=== PATIENT | female | born 1990 | race Caucasian/White ===

== ENCOUNTER → 2018-06-26 | Outpatient (CLI) | END | disposition home or self-care (01) ==

== ENCOUNTER 2019-02-16 08:35 | Inpatient (IN) | payer BC ==
[~2019-02-16] VITALS: Ht 162.6 cm; Wt 74.6 kg
[2019-02-16 08:42] VITALS: Ht 162.6 cm; Wt 74.6 kg
[2019-02-16] MEDS ORDERED: PREN-93 PO (08:50)
--- NOTE | 2019-02-16 09:38 | TRIAGE ---
OB Triage Datetime Report Generated by CPN: 02/16/2019 09:38 Datetime: 02/16/2019 09:23 Stage of : OB Triage Maternal Assessment Level of Consciousness: Fully Conscious DTR's/Clonus: DTRs 1+ Headache: Denies Breath Sounds, Left: Clear and Equal Breath Sounds, Right: Clear and Equal Nausea/Vomiting: Denies RUQ Epigastric Pain: Denies Labor Evaluation Frequency: 2-5 Monitor Mode: External Duration (sec)2399: 40-90 Quality: Mild Pattern: Normal: <= 5 Contractions in 10 Minutes Resting Tone [place]: Relaxed Heart Rate FHR Baseline Rate: 140 Monitor Mode: External US Variability: Moderate 6-25 bpm Accelerations: 15X15 Decelerations: None Category: Category I Pain Assessment Pain Scale: 0 Pain Presence: None/Denies Pain Type: N/A Pain Goal: 3 Vaginal Exam Membrane Status: Intact Datetime: 02/16/2019 09:06 Maternal Assessment Level of Consciousness: Fully Conscious DTR's/Clonus: DTRs 1+ Headache: Denies Blurred Vision: No Respiratory Effort: Unlabored Breath Sounds, Left: Clear and Equal Breath Sounds, Right: Clear and Equal Nausea/Vomiting: Denies RUQ Epigastric Pain: Denies Facial Edema: None Labor Evaluation Frequency: 2-5 Monitor Mode: External Duration (sec)2399: 40-90 Quality: Mild Pattern: Normal: <= 5 Contractions in 10 Minutes Resting Tone [place]: Relaxed Heart Rate FHR Baseline Rate: 140 Monitor Mode: External US Variability: Moderate 6-25 bpm Accelerations: 15X15 Decelerations: None Category: Category I Pain Assessment Pain Scale: 0 Pain Presence: None/Denies Pain Type: N/A Pain Goal: 3 Vaginal Exam Membrane Status: Intact Datetime: 02/16/2019 08:49 EGA: 40.1 Datetime: 02/16/2019 08:45 Assessment Type: Triage Maternal Assessment Level of Consciousness: Fully Conscious DTR's/Clonus: DTRs 2+; No Clonus Headache: Denies Blurred Vision: No Respiratory Effort: Unlabored; Regular Rhythm; Equal Expansion Breath Sounds, Left: Clear and Equal Breath Sounds, Right: Clear and Equal Nausea/Vomiting: Denies RUQ Epigastric Pain: Denies Lower Extremities Edema: None Degree: None Upper Extremities Edema: None Degree: None Facial Edema: None Fall Risk Assessment History of Falling: (0) No Secondary Diagnosis: (0) No Ambulatory Aid: (0) Bedrest/Nurse Assist IV Therapy: (0) No Gait: (0) Normal/Bedrest/Immobile Mental Status: (0) Oriented to Own Ability Fall Score: 0 Fall Risk Score Definition: No Risk: No action required Datetime: 02/16/2019 08:28 Time of Arrival: 02/16/2019 08:28 Arrived By: Ambulatory Arrived From: Office Chief Complaint: PT CAME IN [facility] FOR NST AND BPP FOR POSTDATES Movement: Present Contractions: Denies/Absent Rupture of Membranes: Denies Vaginal Discharge: Denies Recent Sexual Intercouse: Denies Abdominal Trauma: Not Applicable Additional Patient Complaints: NONE Time Provider Notified: 02/16/2019 08:49 Provider Notified: KATT Initial Plan: NST AND BPP
[2019-02-16 09:46] VITALS: BP 126/84; RESP 20
[2019-02-16] MEDS ORDERED: OXYTOCIN 30 UNITS/LR 500 ML IV SCH ×2 (10:00)
[2019-02-16] MEDS ORDERED: CARBOPROST 250 MCG INJ IM PRN (10:00)
[2019-02-16] MEDS ORDERED: BUTORPHANOL 2 MG INJ IV PRN (10:00)
[2019-02-16] MEDS ORDERED: OXYTOCIN 30 UNITS/LR 500 ML IV PRN (10:00)
[2019-02-16] MEDS ORDERED: MISOPROSTOL 200 MCG TAB PR PRN (10:00)
[2019-02-16] MEDS ORDERED: METHYLERGONOVINE 0.2 MG INJ IM PRN (10:00)
[2019-02-16] MEDS ORDERED: AMPICILLIN 2 GM/NS (PMX) 100 ML IV ONE (10:00)
[2019-02-16] MEDS: LACTATED RINGER'S 1,000 ML IV SCH ×3 (11:47→20:55)
[2019-02-16] MEDS ORDERED: MINERAL OIL LIGHT 10 ML VIAL TOP ONE (12:30)
[2019-02-16] MEDS: MISOPROSTOL 50 MCG CAPSULE PO SCH ×2 (12:53→17:13)
[2019-02-16] MEDS ORDERED: MISOPROSTOL 50 MCG CAPSULE PO SCH (13:00)
[2019-02-16] MEDS ORDERED: AMPICILLIN 1 GM/NS (PMX) 50 ML IV SCH (14:00)
--- NOTE | 2019-02-16 14:31 | HP ---
Date/Time of Note Date/Time of Note DATE: 02/16/19 TIME: 14:29 OB - History Hx of Present Free Text/Dictation 29-year-old female 1 para 0 at 40 weeks and 1 day gestation admitted for elective induction of labor Last Menstrual Period: May 11, 2018 Estimated Due Date: Feb 15, 2019 : 1 Para: 0 Care: Good Care Ultrasounds: Normal mid trimester US Obstetrical Complications: None Medical Complications: None Past Family/Social History * Past Medical, Surgical, Family and Obstetric Histories reviewed from chart. Blood Type: A+ Rubella: not immune RPR/VDRL: Negative GBS Status: Negative HBsAG: Negative OB Admission Exam Vital Signs Vital Signs Vital Signs Date Temp Pulse Resp B/P (MAP) Pulse Ox O2 O2 Flow FiO2 Time Delivery Rate 02/16/19 97.9 20 126/84 Room Air 09:46 (98) Physical Exam HEENT: WNL Heart: Rhythm Normal Lungs: Clear, Equal Abdomen: WNL Extremities: Normal Reflexes: Normal Effacement: 0% Station: -3 Heart Rate: 140's Accelerations: Accelerations Present Decelerations: No Decelerations Varibility: Marked Contractions on Admission: 6-10 Minutes Apart Last 72 hours Lab Results CBC & BMP 02/16/19 10:00 OB Assessment/Plan Reason for admission: induction of labor Other Assessment: 40 weeks and 1 day gestation Elective induction of labor Other plan: Induce labor using Cytotec DONATO HIGGINBOTHAM MD Feb 16, 2019 14:31
[2019-02-17] MEDS: LACTATED RINGER'S 1,000 ML IV SCH ×4 (04:41→20:55)
[2019-02-17] MEDS ORDERED: OXYTOCIN 30 UNITS/LR 500 ML IV SCH (05:00)
[2019-02-17] MEDS ORDERED: ACETAMINOPHEN 325 MG TAB PO PRN (10:45)
--- NOTE | 2019-02-17 18:16 | PN ---
Date/Time of Note Date/Time of Note DATE: 02/17/19 TIME: 18:14 OB Subjective Subjective Subjective Currently does not have complaint of uterine contractions OB Objective Objective Objective Vital signs are stable as well as general physical exam Cervix is 50% in 2-3 cm open Membranes were ruptured Amniotic fluid appeared to be clear OB Assessment/Plan Reason for admission: induction of labor Other Assessment: Term gestation Other plan: Continue with Pitocin augmentation of labor DONATO HIGGINBOTHAM MD Feb 17, 2019 18:16
[2019-02-17] MEDS ORDERED: ROPIVACAINE 0.2% 100 ML ONE (18:43)
--- NOTE | 2019-02-17 19:06 | PREAC ---
Date/Time of Note Date/Time of Note DATE: 02/17/19 TIME: 19:05 Anesthesia Eval and Record Evaluation Time Pre-Procedure Interview DATE: 02/17/19 TIME: 19:05 Age 29 Sex female NPO: 8 hrs Preoperative diagnosis Labor Pain Planned procedure Labor Epidural Past Medical History Past Medical History: Includes Heme: Anemia : : (1), Para: (0), Gestational age: (40) Surgery & Anesthesia Issues No known issue Meds Anticoagulation: No Beta Amandeep within 24 hr: No Reason Beta Amandeep not given: Pt. not on B-Amandeep Reported Medications Vit No.124/Iron/FA ( Vitamin Tablet) 1 Each Tablet, 1 EACH PO, TAB 02/16/19 Current Medications Lactated Ringer's 1,000 ml @ 125 mls/hr Q8H IV Last administered on 02/17/19at 16:22; Admin Dose 125 MLS/HR; Start 02/16/19 at 09:40 Butorphanol Tartrate (Stadol) 2 mg Q2H PRN IV .PAIN; Start 02/16/19 at 10:00 Lidocaine (Xylocaine 1% (Mpf)) 30 ml ONCE PRN INJ .EPISIOTOMY; Start 02/16/19 at 10:00 Oxytocin/Lactated Ringer's 500 ml @ 500 mls/hr ONCE POST IV ; Start 02/16/19 at 10:00 Oxytocin/Lactated Ringer's 500 ml @ 125 mls/hr POST IV ; Start 02/16/19 at 10:00 Oxytocin/Lactated Ringer's 500 ml @ 0 mls/hr ONCE PRN IV .VAGINAL BLEEDING; Start 02/16/19 at 10:00 Methylergonovine Maleate (Methergine) 0.2 mg ONCE PRN IM .VAGINAL BLEEDING; Start 02/16/19 at 10:00 Carboprost Tromethamine (Hemabate) 250 mcg ONCE PRN IM .VAGINAL BLEEDING; Start 02/16/19 at 10:00 Misoprostol (Cytotec) 1,000 mcg ONCE PRN AK .VAGINAL BLEEDING; Start 02/16/19 at 10:00 Oxytocin/Lactated Ringer's 500 ml @ 0 mls/hr Q0M IV Last administered on 02/17/19at 06:53; Admin Dose 1 MLS/HR; Start 02/17/19 at 05:00 Acetaminophen (Tylenol Tab) 650 mg Q4H PRN PO MILD PAIN(1-3)OR ELEVATED TEMP Last administered on 02/17/19at 10:54; Admin Dose 650 MG; Start 02/17/19 at 10:45 Meds reviewed: Yes Allergies Coded Allergies: No Known Allergy (Unverified , 02/16/19) Allergies Reviewed: Yes Labs/Studies Labs Reviewed: Reviewed by anesthesiologist Result Diagram: 02/16/19 1000 test: Positive Studies: ECG (n/a), CXR (n/a) Pre-procedure Exam Last vitals Vital Signs Date Temp Pulse Resp B/P (MAP) Pulse Ox O2 O2 Flow FiO2 Time Delivery Rate 02/16/19 97.9 20 126/84 Room Air 09:46 (98) Airway: Adequate mouth opening, Adequate thyromental dist Mallampati: Mallampati II Teeth: Normal Lung: Normal Heart: Normal ASA Physical Status ASA physical status: 2 Emergency: None Planned Anesthetic Neuraxial: Epidural Planned Pain Management Epidural Pre-operative Attestations Prior to commencing anesthesia and surgery, the patient was re-evaluated, there was verification of: *The patient's identity *The results of appropriate recent lab work and preoperative vital signs *The above evaluation not changing prior to induction *Anesthetic plan, risk benefits, alternative and complications discussed with patient/family; questions answered; patient/family understands, accepts and wishes to proceed. RONNY TORO MD Feb 17, 2019 19:06
--- NOTE | 2019-02-17 19:08 | PAC ---
Date/Time of Note Date/Time of Note DATE: 02/17/19 TIME: 19:08 Post-Anesthesia Notes Post-Anesthesia Note Last documented vital signs Vital Signs Date Temp Pulse Resp B/P (MAP) Pulse Ox O2 O2 Flow FiO2 Time Delivery Rate 02/16/19 97.9 84 20 126/84 99 Room Air 18:46 (98) Activity: WNL Respiratory function: WNL Cardiovascular function: WNL Mental status: Baseline Pain reasonably controlled: Yes Hydration appropriate: Yes Nausea/Vomiting absent: Yes RONNY TORO MD Feb 17, 2019 19:08
[2019-02-17] MEDS ORDERED: ROPIVACAINE 0.2% 100ML BAG EPI SCH (19:30)
[2019-02-17] MEDS ORDERED: NALOXONE (0.4 MG/ML) INJ IV PRN (19:30)
[2019-02-18] MEDS: MINERAL OIL LIGHT 10 ML VIAL TOP PRN ×2 (02:00→02:05)
[2019-02-18] MEDS: LIDOCAINE 1% (MPF) 30 ML INJ INJ PRN ×2 (02:32→02:49)
[2019-02-18] MEDS ORDERED: FENTAnyl 50 MCG/ML VIAL IV ONE (03:00)
--- NOTE | 2019-02-18 04:18 | LDN ---
Date/Time of Note Date/Time of Note DATE: 02/18/19 TIME: 04:15 Delivery Summary 29 years old 1 with single intrauterine delivered a viable male over median episiotomy with third-degree laceration. Nose and mouth suction there was a tight nuchal cord x1 which clamped and cut. Rest of body delivered. Baby given to the nurse. Placenta delivered intact spontaneously with three-vessel cord. Laceration and episiotomy repaired with 0 and 2-0 Vicryl. Patient tolerated procedure well Time of delivery 02:10 Weight 7 pounds 11 ounces - 3485 g 8 at 1 minutes and 9 at 5 minutes EBL 300 mL Weeks of Gestation 40 weeks and 3 days Placenta Delivered: Spontaneously Meconium: none Episiotomy: Yes (Median) Anesthesia type: Local Estimated blood loss: 300 Sponge & Needle done & correct: Yes All needle counts correct: Yes Any foreign bodies felt in the: No Infant Delivery Information Sex Sex: male Apgars 1 Minute: 8 5 Minute: 9 10 Minute: 10 Suctioning Nose & mouth suctioned at yessica: Yes Umbilical Cord Umbilical cord with: 3 Vessels Cord presentations: nuchal cord Nuchal cord present X: 1 Cord Blood was obtained: Yes Mother & Baby Disposition Disposition Mom & Baby to Maternity; Good: Yes JAYDEN DESHPANDE Feb 18, 2019 04:18
[2019-02-18 04:45] VITALS: BP 105/66; PULSE 64; RESP 19
[2019-02-18] MEDS ORDERED: DEXTROSE 5%-LR 1,000 ML IV SCH (04:59)
[2019-02-18] MEDS: LACTATED RINGER'S 1,000 ML IV* SCH ×2 (04:59→06:37)
[2019-02-18] MEDS ORDERED: CARBOPROST 250 MCG INJ IM PRN (05:00)
[2019-02-18] MEDS ORDERED: OXYCODONE/ASPIRIN (4.88/325) TAB PO PRN (05:00)
[2019-02-18] MEDS ORDERED: ZOLPIDEM 5 MG TAB PO PRN (05:00)
[2019-02-18] MEDS ORDERED: ONDANSETRON 4 MG INJ IV PRN (05:00)
[2019-02-18] MEDS ORDERED: WITCH HAZEL/GLYCERIN PAD PR PRN (05:00)
[2019-02-18] MEDS ORDERED: BENZOCAINE 20% 56 ML SPRAY TOP PRN (05:00)
[2019-02-18] MEDS ORDERED: DIPHENHYDRAMINE 50 MG INJ IV PRN (05:00)
[2019-02-18] MEDS ORDERED: MISOPROSTOL 200 MCG TAB PR PRN (05:00)
[2019-02-18] MEDS ORDERED: LANOLIN HPA 1 PKT TOP PRN (05:00)
[2019-02-18] MEDS ORDERED: OXYTOCIN 30 UNITS/LR 500 ML IV PRN (05:00)
[2019-02-18] MEDS ORDERED: DIBUCAINE 1% 30 GM OINT TOP PRN (05:00)
[2019-02-18] MEDS ORDERED: CEFAZOLIN 2 GM/50 ML (PMX) 50 ML IVPB ONE (05:00)
[2019-02-18] MEDS ORDERED: METHYLERGONOVINE 0.2 MG INJ IM PRN (05:00)
[2019-02-18] MEDS ORDERED: ACETAMINOPHEN 325 MG TAB PO PRN (05:00)
[2019-02-18 05:31] VITALS: BP 110/71; PULSE 65; RESP 17
[2019-02-18] MEDS: IBUPROFEN 600 MG TAB PO SCH ×3 (05:44→18:06)
[2019-02-18 08:00] VITALS: BP 113/77; PULSE 67; RESP 20
[2019-02-18 15:55] VITALS: BP 106/68; PULSE 64; RESP 18
[2019-02-18] MEDS: CEPHALEXIN 500 MG CAP PO SCH ×2 (16:30→18:06)
[2019-02-18 20:00] VITALS: BP 109/80; PULSE 64; RESP 18
[2019-02-18] MEDS: MAGNESIUM HYDROXIDE 30ML CUP PO PRN (21:34)
[2019-02-18] MEDS: SENNA/DOCUSATE NA (8.6MG/50MG) TAB PO PRN (21:34)
[2019-02-19] MEDS: CEPHALEXIN 500 MG CAP PO SCH ×5 (00:18→23:45)
[2019-02-19] MEDS: IBUPROFEN 600 MG TAB PO SCH ×5 (00:18→23:45)
[2019-02-19 00:36] VITALS: BP 112/68; PULSE 78; RESP 18
[2019-02-19 04:16] VITALS: BP 109/64; PULSE 68; RESP 20
[2019-02-19 08:51] VITALS: BP 111/72; PULSE 70; RESP 18
[2019-02-19] MEDS: MAGNESIUM HYDROXIDE 30ML CUP PO PRN (09:00)
[2019-02-19] MEDS: SENNA/DOCUSATE NA (8.6MG/50MG) TAB PO PRN (09:00)
[2019-02-19 16:04] VITALS: BP 121/80; PULSE 81; RESP 18
--- NOTE | 2019-02-19 17:37 | DS ---
Date/Time of Note Date/Time of Note DATE: 02/19/19 TIME: 17:36 Obstetrical Discharge Record Final Diagnosis Final Diagnosis: Term delivered Other Final Diagnosis Status post vaginal delivery Vaginal Delivery Obstetrical Delivery: Spontaneous, Episiotomy, Repaired Complications Augmentation: Yes Induction: Yes Condition on Discharge Physical Assessment Last Vitals: See nurse's notes Voiding: Yes Bowel Movement: Yes Breast: Soft, non-tender, Filling Fundus: Firm Abdomen and Incision: Abdomen is soft with present bowel sounds Episiotomy: Episiotomy is healing well and appears clean Calf Tenderness: No Patient Condition: Good DONATO HIGGINBOTHAM MD Feb 19, 2019 17:37
[2019-02-19] MEDS ORDERED: IBUP-1542 PO (17:38)
--- NOTE | 2019-02-19 17:38 | PD.PPDC ---
[employer] PROFESSOR Discharge Instruction Provider Information Physician Information 29-year-old female had vaginal Diagnosis [id number] Final Diagnosis: Vjiht4m Status post vaginal Condition [id number] Patient Condition: [id number] Good Diet [id number] Diet: Jtnly8n Resume Regular Diet Activity/Restrictions [id number] Activity: Ynmgu2m Normal Activity May Shower [id number] Restrictions: Nowiz1w Nothing in the Vagina [id number] Return to Work or School: Uyszc0l Apr 06, 2019 Follow-up Follow-up with Physician: 2, 4, Week/Weeks (In clinic) Return to clinic for [id number] OB Instructions: Rqioq7w Breast Tenderness Depression Comment: Pelvic rest for 6 weeks DONATO HIGGINBOTHAM MD Feb 19, 2019 17:38
[2019-02-19 19:35] VITALS: BP 108/72; PULSE 72; RESP 18
[2019-02-20 04:06] VITALS: BP 117/77; PULSE 70; RESP 18
[2019-02-20] MEDS: IBUPROFEN 600 MG TAB PO SCH ×3 (05:28→18:12)
[2019-02-20] MEDS: CEPHALEXIN 500 MG CAP PO SCH ×3 (05:28→18:12)
[2019-02-20 08:30] VITALS: BP 115/71; PULSE 57; RESP 18
[2019-02-20] MEDS ORDERED: MEASLES,MUMPS,RUBELLA VACCINE INJ SC* ONE (09:00)
[2019-02-20] MEDS ORDERED: DIPHTH/TET/ACEL PERTUSS (ADULT) 0.5 ML VIAL IM* ONE (09:00)
[2019-02-20 15:30] VITALS: BP 118/75; PULSE 70; RESP 16
--- NOTE | 2019-02-21 18:17 | DELSUM ---
Delivery Summary A-C Datetime Report Generated by CPN: 02/21/2019 18:17 DELIVERY PERSONNEL Rail Car Welder: Felisa Vega MATERNAL INFORMATION Delivery Anesthesia: Epidural Medications in Delivery: see EMAR Delivery QBL (ml): 300 Placenta Cultured: No Maternal Complications: None LABOR SUMMARY EDC: 02/15/2019 00:00 No. Babies in Womb: 1 Attempted: No Labor Anesthesia: Epidural LABOR INFORMATION Reason for Induction: Postterm Onset of Labor: 02/17/2019 16:00 Complete Dilatation: 02/18/2019 00:54 Cervical Ripening Agents: Cytotec @ Oxytocin: Augmentation Group B Beta Strep: Negative Antibiotics # of Doses: 1 Antibiotics Time of Last Dose: 02/16/2019 12:00 Steroids Given: None Reason Steroids Not Administered: Not Applicable MEMBRANES Membranes Rupture Method: Spontaneous Rupture of Membranes: 02/17/2019 16:30 Length of Rupture (hr): 9.67 Amniotic Fluid Color: Clear Amniotic Fluid Amount: Large Amniotic Fluid Odor: Normal STAGES OF LABOR Stage 1 hr: 8 Stage 1 min: 54 Stage 2 hr: 1 Stage 2 min: 16 Stage 3 hr: 0 Stage 3 min: 4 Total Time in Labor hr: 10 Total Time in Labor min: 14 VAGINAL DELIVERY Episiotomy: Median Laceration Extension: Third Degree Laceration Type: Perineal Laceration Repair: Yes Initial Vag Sponge Count: 10+10 Final Vag Sponge Count: 20 Initial Vag Sharps Count: 1+2+1 Final Vag Sharps Count: 4 Sponge Count Correct: Yes Sharps Count Correct: Yes BABY A INFORMATION Infant Delivery Date/Time: 02/18/2019 02:10 Method of Delivery: Vaginal Born in Route : No : N/A Forceps: N/A Vacuum Extraction: N/A Shoulder Dystocia : No SHOULDER DYSTOCIA BABY A Delivery Date/Time: 02/18/2019 02:10 PRESENTATION/POSITION BABY A Presentation: Cephalic Cephalic Presentation: Vertex Breech Presentation: N/A PLACENTA INFORMATION BABY A Placenta Delivery Time : 02/18/2019 02:14 Placenta Method of Delivery: Spontaneous Placenta Status: Delivered SCORES BABY A Heart Rate 1 min: >100 bpm Resp Effort 1 min: Good Cry Reflex Irritability 1 min: Cough/Sneeze/Pulls Away Muscle Tone 1 min: Active Motion Color 1 min: Blue/Pale Resuscitation Effort 1 min: Tactile Stimulation SCORE 1 MIN: 8 Heart Rate 5 min: >100 bpm Resp Effort 5 min: Good Cry Reflex Irritability 5 min: Cough/Sneeze/Pulls Away Muscle Tone 5 min: Active Motion Color 5 min: Body Gene [place], Extremit Blue Resuscitation Effort 5 min: N/A SCORE 5 MIN: 9 INFORMATION BABY A Gestational Age at Delivery: 40.3 Gestational Status: Full Term- 39- 40.6 Weeks Outcome : Liveborn Condition : Stable Infant Sex: Male IDENTIFICATION/MEDS BABY A ID Band Number: [id number] ID Band Location: Right Leg; Left Arm Sensor Applied: Yes Sensor Number: [id number] Sensor Location : Cord Clamp Vitamin K Given : Not Given Erythromycin Given: Not Given WEIGHT/LENGTH BABY A Birthweight (gm): 3485 Infant Weight (lb): 7 Infant Weight (oz): 11 Length (in): 20.50 Infant Length (cm): 52.07 CORD INFORMATION BABY A No. Cord Vessels: 3 Nuchal Cord : Around Neck x1, Tight Cord Blood Taken: Yes Banking/Donate Info: n/a Suction: Mouth; Nose ASSESSMENT BABY A Infant Complications: Multiple Variable Decels Physical Findings at Delivery: Caput Succedaneum Respirations: Appears Normal Margin Clerk/ALS Called : Yes Infant Care By: Harshal Arce RN and Leonardo WELLS Transferred To: Remains with Mother
== END 2019-02-20 18:16 | disposition home or self-care (01) | DRG 768 ==
LOC: OBT 08:35 → L-D 08:36 → OBT 09:24 → L-D 02-17 16:15 → PP1 02-18 04:31
PROVIDERS: ADMIT Obstetrics & Gynecology; ATTEND Obstetrics & Gynecology
PROC: 10E0XZZ Delivery of Products of Conception, External Approach (ICD-10-PCS; principal; 2019-02-18)
PROC: 0DQR0ZZ Repair Anal Sphincter, Open Approach (ICD-10-PCS; 2019-02-18)
PROC: 0W8NXZZ Division of Female Perineum, External Approach (ICD-10-PCS; 2019-02-18)
DX: O69.1XX0 Labor and delivery complicated by cord around neck, with compression, not applicable or unspecified (principal); Z37.0 Single live birth; O70.20 Third degree perineal laceration during delivery, unspecified; Z3A.40 40 weeks gestation of pregnancy; Z23 Encounter for immunization
CPT/HCPCS: 62322; 76815; 76818; 85025; 85610; 85730; 86592; 86850; 86900; 86901; 87340; 99464; G0463; J0290; J0690; J2590; J2795; J3010; J7120; J7121

== ENCOUNTER 2019-08-18 21:06 | Emergency (ER) | payer BC ==
[~2019-08-18] VITALS: Ht 162.6 cm; Wt 60.6 kg
[~2019-08-18 21:06] MED LIST: HYDR-3980 PO; IBUP-1542 PO; NALO4SPR NS; ONDA4TAB14 PO; PREN-93 PO
[2019-08-18 21:30] VITALS: Ht 162.6 cm; Wt 60.6 kg
[2019-08-18] MEDS ORDERED: ONDANSETRON 4 MG INJ IV STA (22:24)
[2019-08-18] MEDS ORDERED: morphine 4 MG/ML VIAL IV STA (22:24)
[2019-08-18] MEDS ORDERED: SOD CHLORIDE 0.9% 1,000 ML IV STA (22:24)
[2019-08-19 01:11] VITALS: BP 103/63; PULSE 58; RESP 18
== END 2019-08-19 01:12 | disposition home or self-care (01) ==
LOC: FTE 21:06
DX: K80.70 Calculus of gallbladder and bile duct without cholecystitis without obstruction (principal)
CPT/HCPCS: 36415; 76705; 80053; 81001; 81025; 83690; 85025; 96361; 96374; 96375; J2270; J2405; J7030; Z7502; 81003